=== PATIENT | male | born 1990 | race African-American/Black ===

== ENCOUNTER 2019-10-09 15:08 | Emergency (ER) | payer OTHER ==
[2019-10-09] MEDS ORDERED: Lidocaine 1% (PF) 30 ML VIAL ONE (16:10)
--- NOTE | 2019-10-09 16:27 | RAD ---
Right thumb 3 views: HISTORY: Injury, laceration, concern for foreign body FINDINGS: There is extensive bandage material overlying the thumb somewhat obscuring it. On the AP view only on the palmar side at the level of the distal phalanx there is a possible very tiny linear opacity. This is not seen on the other views. I'm not certain whether this represents a tiny foreign body or w hether this could represent some type of artifact. IMPRESSION: Questionable tiny linear density possibly artifact or possibly very tiny foreign body. No fracture or dislocation. Extensive bandage material overlies and somewhat obscures the thumb.
[2019-10-09] MEDS ORDERED: Bacitracin 1 PK ONE (17:07)
--- NOTE | 2019-10-09 17:21 | RAD ---
Exam: XR Finger(s) Rt Min 2 View HISTORY: Follow-up evaluation of foreign body. COMPARISON: 10/09/2019 FINDINGS: 3 views right thumb are again submitted. The previously seen tiny linear radiopaque foreign body over lying the lateral aspect of the subcutaneous soft tissues distal right thumb is not visualized on this exam. Minimal subcutaneous soft tissue swelling is present but does appear mildly improved from prior study. Overlying bandaging material is no longer seen. No acute fracture, dislocation, or other acute osseous abnormality is identified. IMPRESSION: 1. No acute osseous abnormality. 2. Minimal subcutaneous soft tissue swelling lateral aspect of the thumb at the level of the distal i nterphalangeal joint. Previously suggested radiopaque foreign body is no longer visualized on this exam and may have been artifactual or secondary to removal of foreign body.
== END 2019-10-09 17:40 | disposition home or self-care (01) ==
LOC: NAV ERS 15:08
DX: S61.011A Laceration without foreign body of right thumb without damage to nail, initial encounter (principal); W01.110A Fall on same level from slipping, tripping and stumbling with subsequent striking against sharp glass, initial encounter
CPT/HCPCS: 12002; J2001